=== PATIENT | female | born 1935 | race Caucasian/White ===

== ENCOUNTER 2020-12-02 10:29 | Day surgery (SDC) | payer MEDICARE, OTHER ==
[2020-12-02] VITALS (10 sets, daily range): BP systolic 118–190; BP diastolic 34–86; PULSE 59–77; TEMP 98
[~2020-12-02] VITALS: Ht 149.9 cm; Wt 45.2 kg
[~2020-12-02 10:29] MED LIST: BENADRYL25 M2 PO; BONIVA150 MG PO; CALCARB 600 W/V1 TA1 PO; CALCIUM 600MG+D1 TAB PO; CALTRATE 600600 MG PO; COLACE 100100 MG/CAP PO; COZAAR 50MG50 MG/TAB PO; FERROUS SU325 MG/TAB PO; FOLIC ACID 11 MG/TA1 PO; HCTZ 25MG TAB25 MG PO; IRON TABLETS325 MG PO; KLOR-CON M2020 MEQ PO; LIDODERM 5% PATC1 EA TP; LOPRESSOR 225 MG/TAB PO; METHOTREXA2.5 MG/TAB PO; NEXIUM 40MG40 MG PO; NORVASC 5MG5 MG/TAB PO; PLENDIL 5MG TAB5 MG PO; PRIL40 PO; RESTASIS0.05% OP; RITUXAN 50500 MG/50 IV; SOLU-MEDRO125 MG/21 IJ; TEGRETOL 1100 MG/TAB PO; TEGRETOL 2200 MG/TA1 PO; TYLENOL 325MG325 MG PO; VITAMIN C500 MG PO; VITAMIN D 1001000 IU PO; VITAMIN D 400400 IU PO; ZANTAC 150MG T150 MG PO; ZOCOR 20MG20 MG PO
[2020-12-02 11:36] LABS: HEMATOCRIT 39.4 % (37.0-47.0); HEMOGLOBIN 12.6 g/dl (12.5-16.0); MEAN CELL VOLUME 81 fl (80.0-100.0); MEAN CORPUSCULAR HEMOGLOBIN 26 pg (27.0-31.0); MEAN CORPUSCULAR HGB CONC 32 g/dl (33.0-37.0); MEAN PLATELET VOLUME 9.9 fl (7.4-10.4); PLATELET COUNT 322 K/mm3 (130-400); RED BLOOD COUNT 4.85 M/mm3 (4.10-5.30); REDCELL DISTRIBUTION WIDTH-CV 19.1 % (11.5-14.5)
[2020-12-02 11:46] LABS: CALCIUM 9.1 mg/dL (8.4-10.2); CREATININE, serum 0.61 (0.52-1.25); POTASSIUM 3.9 mmol/L (3.4-5.0)
--- NOTE | 2020-12-02 12:24 | NUR ---
SEE MERGE DOCUMENTATION FOR MEDICATION ADMINISTRATION TIMES AND INTRA/POST PROCEDURE SEDATION ASSESSMENTS.
[2020-12-02] MEDS ORDERED: TEGRETOL 1100 MG/TAB PO (12:26)
[2020-12-02] MEDS ORDERED: ASPIRIN E.C. 8181 MG PO (12:27)
[2020-12-02] MEDS ORDERED: TOPROL XL 25MG25 MG PO (12:27)
--- NOTE | 2020-12-02 13:15 | NUR ---
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 pt is awake and calm, daughter is at bs. ice pack to left upper chest. Gauze dressing is clean dry and intact. telemetry initiated. vpaced rhythm on monitor. Daughter updated on poc. wctm.
[2020-12-02] MEDS ORDERED: CEPHALEXIN500 M1 PO ×2 (15:08)
--- NOTE | 2020-12-02 16:33 | NUR ---
PT to exit at this time via wheelchair with daughter. Pt did well during her monitoring period. Ice pack was applied to incision site for 1st hour and then again at discharge. pt was able to eat and drink with help from her daughter. Ordered po keflex was administered, capsule was opened and powder put into some pudding which pt was able to eat. THis technique approved by pharmacy as pt unable to swallow capsules. I reviewed dc/fu and rx instructions with pt's daughter, she verbalized understanding. IV was dc'd wtih cath intact, dressing was applied. no concerns at time of departure.
== END 2020-12-02 17:19 | disposition home or self-care (01) ==
LOC: COL.CAR 10:29
PROVIDERS: Internal Medicine Interventional Cardiology
DX: Z45.010 Encounter for checking and testing of cardiac pacemaker pulse generator [battery] (principal); I48.0 Paroxysmal atrial fibrillation; I42.9 Cardiomyopathy, unspecified; I11.9 Hypertensive heart disease without heart failure; E78.5 Hyperlipidemia, unspecified; M06.9 Rheumatoid arthritis, unspecified; Z87.891 Personal history of nicotine dependence; Z20.822 Contact with and (suspected) exposure to COVID-19; Z79.899 Other long term (current) drug therapy
CPT/HCPCS: C1785; J0690; J2250; J3010; J7030